=== PATIENT | female | born 2000 | race Caucasian/White ===

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

== ENCOUNTER → 2021-02-13 | Outpatient (CLI) | payer BC, OTHER ==
[2021-02-13 19:58] LABS: CHLAMYDIA DNA AMPLIFICATION NEGATIVE (NEGATIVE); GC DNA AMPLIFICATION NEGATIVE (NEGATIVE)
== END ==
LOC: M LAB 12:49
PROVIDERS: ATTEND Physician Assistant
DX: Z20.2 Contact with and (suspected) exposure to infections with a predominantly sexual mode of transmission (principal)

== ENCOUNTER → 2021-02-14 | Outpatient (CLI) | payer BC, OTHER | LOC: M LAB 12:24 | PROVIDERS: ATTEND Physician Assistant | DX: Z20.2 Contact with and (suspected) exposure to infections with a predominantly sexual mode of transmission (principal) ==

== ENCOUNTER → 2021-04-11 | Outpatient (REF) | payer OTHER ==
[2021-04-11 18:13] LABS: GC DNA AMPLIFICATION NEGATIVE (NEGATIVE)
== END ==
LOC: M WUC 15:47
PROVIDERS: ATTEND Nurse Practitioner Family
DX: N76.0 Acute vaginitis (principal)

== ENCOUNTER → 2022-01-26 | Outpatient (REF) | payer OTHER ==
[2022-01-26 19:40] LABS: GC DNA AMPLIFICATION NEGATIVE (NEGATIVE)
== END ==
LOC: M LAB REF 16:55
PROVIDERS: ATTEND Pediatrics
DX: Z30.41 Encounter for surveillance of contraceptive pills (principal)

== ENCOUNTER → 2022-03-22 | Outpatient (CLI) | payer BC, OTHER | LOC: M RAD 11:48 | PROVIDERS: ATTEND Nurse Practitioner Pediatrics | DX: M54.50 Low back pain, unspecified (principal) ==

== ENCOUNTER → 2025-04-02 | Outpatient (RCR) | LOC: M EMPSSV 03-08 08:12 | PROVIDERS: ATTEND Family Medicine | DX: Z11.52 Encounter for screening for COVID-19 (principal) ==